=== PATIENT | male | born 1955 | race Hispanic/Latino ===

== ENCOUNTER 2023-09-18 13:30 | Day surgery (SDC) | payer OTHER ==
[2023-09-18] VITALS (8 sets, daily range): BP systolic 128–154; BP diastolic 61–85; PULSE 75–101; RESP 15–18
[2023-09-18] MEDS ORDERED: FENTANYL CITRATE PF 50 MCG/1 ML 2ML VIAL ONE (14:31)
[2023-09-18] MEDS ORDERED: LIDOCAINE HCL 400MG/20ML VIAL ONE (14:31)
[2023-09-18] MEDS ORDERED: MIDAZOLAM HCL 1 MG/ML 2ML VIAL ONE ×3 (14:31→16:32)
[2023-09-18] MEDS ORDERED: HEPARIN 10,000 UNIT/10ML (1,000 UNIT/ML) VIAL ONE (14:31)
[2023-09-18] MEDS ORDERED: IODIXANOL 320 MG/ML 100 ML VIAL ONE ×2 (14:41→16:35)
[2023-09-18] MEDS ORDERED: CLOPIDOGREL 300MG TAB ONE (15:24)
[2023-09-18] MEDS ORDERED: ASPIRIN 81MG CHEW TAB ONE (15:25)
[2023-09-18] MEDS ORDERED: HYDRALAZINE 20MG/ML VIAL ONE (15:34)
[2023-09-18] MEDS ORDERED: NITROGLYCERIN 50MG VIAL ONE (15:57)
[2023-09-18] MEDS ORDERED: DEXTROSE 50%-WATER 50 ML DISP.SYRIN IV PRN ×2 (17:00)
[2023-09-18] MEDS ORDERED: GLUCAGON 1MG KIT 1 MG ML IM PRN ×2 (17:00)
== END 2023-09-18 19:58 | disposition short-term general hospital (02) ==
LOC: DAH 13:30
PROVIDERS: ATTEND Student in an Organized Health Care Education/Training Program
DX: I70.248 Atherosclerosis of native arteries of left leg with ulceration of other part of lower leg (principal); L97.828 Non-pressure chronic ulcer of other part of left lower leg with other specified severity; E11.51 Type 2 diabetes mellitus with diabetic peripheral angiopathy without gangrene; I25.82 Chronic total occlusion of coronary artery; E11.22 Type 2 diabetes mellitus with diabetic chronic kidney disease; I12.0 Hypertensive chronic kidney disease with stage 5 chronic kidney disease or end stage renal disease; N18.6 End stage renal disease; E78.5 Hyperlipidemia, unspecified; Z79.899 Other long term (current) drug therapy; Z79.4 Long term (current) use of insulin; Z99.2 Dependence on renal dialysis; Z79.01 Long term (current) use of anticoagulants
CPT/HCPCS: 75625; 75716; 37252; 37253; 85347 ×2; C9773; C1725 ×3; C1894 ×2; C2623; C1760; C1893; C1753; C1769 ×2; C9764; C1874; C1887; J3010; J3490 ×2; J0360; J1644 ×3; J2250 ×3; Q9967 ×2; A4216; 36415; 99156; 99157